=== PATIENT | female | born 1980 | race Two or more races ===

== ENCOUNTER 2020-02-18 13:28 | Emergency (ER) | payer BC, SELFPAY ==
[2020-02-18 14:43] VITALS: BMI 25.1
[2020-02-18 14:45] VITALS: BP 140/76; PULSE 80; RESP 20; TEMP 36.9; O2SAT 98; BMI 25.1
[2020-02-18 14:57] LABS: UTC Strep Screen (Rapid) Positive (Negative)
--- NOTE | 2020-02-18 15:03 | HMH.EDUTC ---
[facility] [place] Clinical Impression: Strep throat Disposition: Home, Self-Care Condition on Discharge: Good Instructions: Strep Throat, DI for Strep Throat Additional Instructions: Drink plenty of fluids. Take tylenol or ibuprofen for pain or fever. Take the medications as directed. Follow up with your regular doctor. GO TO THE ER FOR ANY WORSENING SYMPTOMS Throw your tooth brush away and get a new one. Prescriptions: Ondansetron [Zofran 4mg ODT] 4 mg PO Q8HP PRN #10 PRN Reason: Nausea Azithromycin [Z-Solis 250mg Tab*] 250 mg PO UD DOSE PK #6 tab Transmission Status: Received by [id number] Ondansetron [Zofran 4mg ODT] 4 mg PO TIDP PRN #10 tab PRN Reason: Nausea Transmission Status: Received by [id number] Referrals: Cleveland Dailey [Primary Care Provider] - Forms: Work/School Release Time of Disposition: 15:11 Medical Decision Making - Medical Records Medical records reviewed: No: I reviewed the patient's medical records. - [place] Inquiry Pt receiving controlled substance: No Vital Signs: 02/18/20 14:45 02/18/20 15:17 Temperature 98.4 F 98.4 F Temperature Source Oral Pulse Rate 80 Pulse Rate [Right Brachial] 80 Respiratory Rate 20 20 Blood Pressure 140/76 Blood Pressure [Right Arm] 140/76 Blood Pressure Mean [Right Arm] 97 Blood Pressure Source [Right Arm] Automatic Cuff Blood Pressure Position [Right Arm] Sitting 02 Sat by Pulse Oximetry 98 Oxygen Delivery Method Room Air - Lab Data Lab results reviewed: Yes: I reviewed the patient's lab results. Lab Results 02/18/20 14:43: Strep Scn Rapid Clinic Positive A [facility] H[place] - General Stated complaint: covid test/symptoms Time Seen by Provider: 02/18/20 15:03 Mode of Arrival: Ambulatory Source of Information: Patient Limitations: No Limitations Description of Symptoms (Recalled from Triage Doc. by RN): PATIENT C/O HEADACHE, STOMACHACHE, AND LOW ENERGY. RECENTLY EXPOSED TO COVID HEENT Symptoms (Recalled from RN notes): Yes Resp Symptoms (Recalled from RN notes): No Skin Symptoms (Recalled from RN notes): No MS Symptoms (Recalled from RN notes): No Functional Status (Recalled from RN notes): WNL - History of Present Illness Provider Complaint: She c/o sore throat and gi upset for the past 2 days. - Related Data Previous Rx's Medication Instructions Recorded Azithromycin [Z-Solis 250mg Tab*] 250 mg PO UD DOSE PK #6 tab 02/18/20 Ondansetron [Zofran 4mg ODT] 4 mg PO Q8HP PRN #10 02/18/20 Ondansetron [Zofran 4mg ODT] 4 mg PO TIDP PRN #10 tab 02/18/20 Allergies Allergy/AdvReac Type Severity Reaction Status Date / Time No Known Allergies Allergy Verified 02/18/20 14:43 - Worker's Comp Is this a Worker's Comp case?: No [facility] History - Hepatitis A Screen Drug use history?: No High risk sexual behaviors?: No History of sexually transmitted infection?: No Currently employed?: No Childcare worker?: No Do you have indoor plumbing?: Yes Do you have electricity?: Yes Attestation statement:: This patient has been screened for Hepatitis A risk factors. I have reviewed the patient's past medical history: Yes - Social History Alcohol Intake: never Occupational Status: other ROS Obtained: Yes All systems reviewed & no additional complaints - Constitutional Constitutional: Reports chills, Reports fever(s), Reports poor appetite, Reports malaise - Eyes Eyes: Denies eye discharge - ENT Ears, Nose, Mouth, and Throat: Reports as per HPI Physical Exam - General General appearance: alert, in no apparent distress - Head Head exam: atraumatic, normocephalic, normal inspection - Eye Eye exam: Present: normal appearance, PERRL, EOMI - ENT ENT exam: Present: mucous membranes moist, normal external ear exam - Expanded ENT Exam TM/Canal exam: Bilateral TM: erythema, bulging Mouth exam: Present: normal external inspection Teeth exam: Present: normal in
[2020-02-18 15:17] VITALS: BP 140/76; PULSE 80; RESP 20; TEMP 36.9; O2SAT 98
== END 2020-02-18 15:24 | disposition home or self-care (01) ==
PROVIDERS: Emergency Provider Nurse Practitioner Family; PCP Pediatrics
DX: J02.0 Streptococcal pharyngitis (principal); Z20.828 Contact with and (suspected) exposure to other viral communicable diseases
CPT/HCPCS: 87880; 99202; U0003